=== PATIENT | male | born 1990 | race Caucasian/White ===

== ENCOUNTER 2020-03-02 10:21 | Emergency (ER) | payer SELFPAY ==
[2020-03-02 10:25] VITALS: BP 120/79; PULSE 82; RESP 14; TEMP 36.8; O2SAT 100; BMI 20.3
--- NOTE | 2020-03-02 12:02 | ED_ITS ---
HPI - Psych <CHRIS Mccloud - Last Filed: 03/02/20 14:09> General Chief Complaint: Psychiatric Symptoms Stated Complaint: Depression Time Seen by Provider: 03/02/20 11:24 Source: patient Mode of arrival: Ambulatory Limitations: no limitations History of Present Illness HPI Narrative: The patient is a 29-year-old maleCurrent smoker with normal history of depression she when he was a child who presents with a chief complaint of ?depression flare up.He states that his mother referred him to the emergency department as she is worried about him. He states that he has been depressed for a very long time, does not see a primary care provider or counselor. He has never been on any medications. He denies any current suicidal thoughts or ideations. He states he would not be able to hurt and kill himself because ?loves his mother and sister two much.Denies any other psychiatric diagnoses such as schizophrenia, bipolar etcetera though/he is curious about them. He states he has not eating or drinking well, is having a hard time sleeping and feels very hopeless about life. Endorses smoking marijuana, no illicit drugs or alcohol. Related Data Allergies Allergy/AdvReac Type Severity Reaction Status Date / Time No Known Drug Allergies Allergy Verified 03/02/20 10:25 Review of Systems <CHRIS Mccloud - Last Filed: 03/02/20 14:09> Review of Systems Narrative: GENERAL: Denies chills, fatigue, malaise, fever, sweats. HEENT: Denies sinus pain, ear pain, sore throat, difficulty swallowing, dizziness. RESPIRATORY: Denies dyspnea, cough, wheezing, hemoptysis, sputum. CARDIOVASCULAR: Denies chest pain, palpitations, orthopnea, edema, GASTROINTESTINAL: Denies nausea, vomiting, abdominal pain, diarrhea, constipation, melena. : Denies dysuria, frequency, incontinence, hematuria, urinary retention. MUSCULOSKELETAL: denies weakness, joint pain, or bony pain SKIN: Denies rash, skin lesions, or other NEUROLOGIC: Denies weakness, headache, numbness, change in speech, confusion, seizures, incoordination. PSYCHIATRIC: See HPI 12 point review of systems is negative except for those stated above Patient History <CHRIS Mccloud - Last Filed: 03/02/20 14:09> Social History Smoking Status: Current every day smoker Smoking Status: Current every day smoker alcohol intake frequency: holidays/special occasions only Substance Use Type: marijuana Exam <CHRIS Mccloud - Last Filed: 03/02/20 14:09> Narrative Exam Narrative: GENERAL: This is a well-nourished, well-developed patient, in no acute distress HEAD: Atraumatic. Normocephalic. No temporal or scalp tenderness. EYES: Pupils equal round and reactive. Extraocular motions intact. No scleral icterus. No injection or drainage. ENT: Nose without bleeding, purulent drainage or septal hematoma. Wearing a Uvula midline. Airway patent. NECK: Trachea midline. No JVD or lymphadenopathy. Supple, nontender, no meningeal signs. CARDIOVASCULAR: Regular rate and rhythm RESPIRATORY: No cough. No increased respiratory effort. No accessory muscle use. EXTREMITIES: Using all extremities equally BACK: Nontender without deformity or crepitance. No flank tenderness. NEURO: AOx3. Interactive. Age appropriate. SKIN: No rash or erythema visible skin Initial Vital Signs Initial Vital Signs: Vital Signs Temperature 98.2 F 03/02/20 10:25 Pulse Rate 82 03/02/20 10:25 Respiratory Rate 14 03/02/20 10:25 Blood Pressure 120/79 03/02/20 10:25 Pulse Oximetry 100 03/02/20 10:25 <Venecia Mac MD - Last Filed: 03/02/20 18:57> Initial Vital Signs Initial Vital Signs: Vital Signs Temperature 98.2 F 03/02/20 10:25 Pulse Rate 82 03/02/20 10:25 Respiratory Rate 14 03/02/20 10:25 Blood Pressure 120/79 03/02/20 10:25 Pulse Oximetry 100 03/02/20 10:25 Scores <CHRIS Mccloud - Last Filed: 03/02/20 14:09> GCS [place] coma scale eye opening: Spontaneous [place] coma scale verbal response: Orientated [place] coma scale motor response: Obey commands [place] coma scale total score: 15 Course <CHRIS Mccloud - Last Filed: 03/02/20 14:09> Orders Ordered: ED Orders 03/02/20 12:00 Consult to SKIMMER SCOOP OPERATOR - Heel Cutter Stat Discontinued Medications Hydroxyzine Pamoate (Vistaril) 50 mg PO NOW ONE Stop: 03/02/20 12:01 Last Admin: 03/02/20 12:33 Dose: 50 mg Documented by: KATHY Vital Signs Vital signs: Vital Signs - 8 hr 03/02/20 13:47 Pulse Rate 90 Blood Pressure 107/71 Pulse Oximetry 100 <Venecia Mac MD - Last Filed: 03/02/20 18:57> Orders Ordered: ED Orders 03/02/20 12:00 Consult to SKIMMER SCOOP OPERATOR - Heel Cutter Stat Discontinued Medications Hydroxyzine Pamoate (Vistaril) 50 mg PO NOW ONE Stop: 03/02/20 12:01 Last Admin: 03/02/20 12:33 Dose: 50 mg Documented by: KATHY Vital Signs Vital signs: Vital Signs - 8 hr 03/02/20 13:47 Pulse Rate 90 Blood Pressure 107/71 Pulse Oximetry 100 MDM - Psych <CHRIS Mccloud - Last Filed: 03/02/20 14:09> [facility] Narrative Medical decision making narrative: The patient is a 29-year-old male who presents with a chief complaint of depression that has been on and off, worse over the past bit. He is adamantly denies any thoughts of hurting himself or anybody else. He was seen and evaluated by Jamil BERKOWITZ, who was able to provide some resources. He concurs that the patient is stable to be discharged home. I discussed at length with the patient that if he has any thoughts of hurting himself or anybody else, he has to come back to the emergency department and he agrees. He states he will follow up with resources provided by Jamil and that he plans on calling as [facility] later today. He states he would like a diagnosis and further treatment. He is okay with plan of care. No questions or concerns upon discharge and states understanding return precautions as well as follow-up care. Discharge Plan Departure Patient Disposition: Home Clinical Impression: Depression Qualifiers: Depression Type: other depression Qualified Code(s): F32.89 - Other specified depressive episodes Discharge Date/Time: 03/02/20 13:45 Instructions: DI for Depression -- Adult Activity Restrictions/Additional Instructions: Thank you for trusting us with your care today. As discussed, please follow-up with resources provided to you by [facility]. Please call [facility]RE[facility]. I have given you contact information [facility] human resources benefits coordinator, they can help you find a local primary care provider as well. As discussed, please come back to emergency department for any acute concerns such as thoughts of hurting herself or anybody else Referrals: [facility] [Outside] <Venecia Mac MD - Last Filed: 03/02/20 18:57> Cosign ED Attending Mabelature Attestation: I was immediately available in the department for consultation throughout this patient's visit. I agree with documentation as above. Venecia Mac MD
[2020-03-02] MEDS: hydrOXYzine pamoate 25 MG CAPSULE 50 MG PO (12:33)
--- NOTE | 2020-03-02 12:59 | PC.NURSE ---
Jamil BERKOWITZ, with patient.
--- NOTE | 2020-03-02 13:24 | CM.SWNOTE ---
PASTOR note PASTOR - Solid T[employer] Finisher Assessment PASTOR - Solid T[employer] Finisher Assessment Start: 03/02/20 13:08 Freq: Status: Active Protocol: Document 03/02/20 13:08 BLAZE (Rec: 03/02/20 13:24 BLAZE [id number]) PASTOR/Solid Tire Finisher Assessment Time Spent with Patient Start date 03/02/20 Visit Start Time 12:35 End date 03/02/20 Visit End Time 13:05 Total time Care Management spent on 30 patient visit-in minutes Mental Health Screening Include Onset, Duration, Intensity Presenting Problem Patient presented to ED due to depression. Patient states he experiences periods of depression once every few months that last between a few days and a few weeks. Patient reports feelings of hopelessness, low motivation, and distain for my own existance at times during these waves. Patient denies SI /HI. Patient states this period of depression feels more intense than other periods. Precipitating Event(s) Patient recently discharged from the [facility] and moved from [place] to [place] to live with mother. Current Behavioral Health Provider(s) None- Referral provided to [facility] Include Facility, Provider, Ph. # [facility] [place] [facility]. Hx Mental Health and Chemical Patient reports having periods Dependency of depression for several years. Patient reports he notices he often experiences anxiety during these periods of depression, and states that the anxiety adds to the intensity of the feeling of depression. Patient reports that during the highest intensity periods of his depression he tries to be an observer in his own experience to avoid getting caught up in the thoughts. Patient endorses marijuana use , stating it helps with sleep and depression. Patient reports a period of alcohol abuse between ages 19 and 28, but states he has discontinued use and hasn't thought about it much since he stopped drinking. Family Hx of Behavioral Abuse None reported. Psychiatric Hospitalizations (date(s)/ None. location) Support System(s) Patient lives with mother-who asked patient to come to ED today due to depression. Patient reports a close relationship with his sister, her , and their children. Patient states he has a few close friends who he stays in contact with as well. School/Work Patient currently works at a [employer], but states he has missed work due to depression. Patient does not report current enrollment in school, but does report an enjoyment of reading and research. Legal Concerns Legal Matters - Outstanding Issues None reported Mental Status Orientation (Person/Place/Time) Oriented x3 Affect Slightly dysphoric, stable Thought Content - Specify/Describe No hallucinations, delusions, Obsessions, Delusions, Hallucinations or obsessions observed or reported during assessment. Patient did speak in abstract language about his current mental health concerns. Thought Processes (Gqnuskc-Zquzksjs-Rcpw Logical-Goal Directed Wuexfckg-Bzmdvepf-Iuovqgbzdh- Nygvmzokvfhvlc-Mjxkhih-Xujnzpgzeopu- Thought Blocking) Speech (Ugvjlh-Mtju-Xbdzjjg-Rapid-Soft- Normal Loud-Pressured) Motor (Ohyktw-Vjxfqcafd-Qfyk-Other) Normal Insight (Present-Partially Present- Present Impaired) Judgement (Intact-Impaired) Present Impulse Control (Adequate-Impaired) Adequate Memory (Ovioqhbgs-Yxesay-Ndxlqn, Intact x3 Impaired-Intact) Concentration (Intact-Impaired) Intact Attention (Intact-Impaired) Intact Behavior (Appropriate-Inappropriate) Appropriate Risk Assessment Suicidal Ideation (Plan) No Homicidal Ideation (Plan) No Comment Patient denies SI/HI. Patient states he does sometimes have thoughts of suicide while depressed, but states he works to move away from those thoughts quickly. Patient states he has never had a plan , and states that he recognizes that suicide would make his pain live on in others and states he does not want to do this. Intervention Intervention PASTOR meets with patient. Patient discusses hx of depression, and explains that he experiences multiple waves of depression each year. Patient presents with numerous strengths including a resolve to feel better, good insight into his depression, compassion for those around him, strong support system, and a passion to increase his knowledge base through research and reading. PASTOR and patient discuss patient illness and patient's goals from coming to ED today. Patient reports he is open to counseling. PASTOR discusses process for enrollment in insurance, and patient reports that he already has the paperwork for this and will contact [facility] to set up insurance tonight. PASTOR refers patient to [facility] in [place] for counseling and psychiatric services. Patient states he plans to reach out to set up an appointment soon. Plan RA Plan Patient to d/c to home with outpatient supports. [facility]
[2020-03-02 13:47] VITALS: BP 107/71; PULSE 90; O2SAT 100
== END 2020-03-02 13:45 | disposition home or self-care (01) ==
PROVIDERS: Emergency Provider Nurse Practitioner Family
DX: F32.89 Other specified depressive episodes (principal)
CPT/HCPCS: 99283